=== PATIENT | female | born 1950 | race Caucasian/White ===

== ENCOUNTER → 2021-11-06 | Outpatient (CLI) | payer MEDICARE ==
[~2021-11-06] MED LIST: ASPIRIN EC81 MG PO; ATORVASTATIN CA20 MG PO; BRILINTA 90 MG90 MG PO; CARVEDILOL12.5 MG PO; CATAPRES 0.1MG0.1 MG PO; GLUCOPHAGE 500500 MG PO; LASIX40 MG PO; POTASSIUM CHLO10 ME1 PO; PRINIVIL20 MG PO; SIMVASTATIN10 MG PO; VALSARTAN80 MG PO; VITAMIN A PO; VITAMIN B-12500 MCG PO; VITAMIN C1000 MG PO; ZOLOFT50 MG PO
== END ==
LOC: HEART 5 12:45
DX: I25.10 Atherosclerotic heart disease of native coronary artery without angina pectoris (principal); I11.0 Hypertensive heart disease with heart failure; I50.22 Chronic systolic (congestive) heart failure; I08.0 Rheumatic disorders of both mitral and aortic valves
CPT/HCPCS: 93306

== ENCOUNTER 2022-05-08 17:39 | Emergency (ER) | payer MEDICARE ==
[2022-05-08] MEDS ORDERED: CEPHALEXIN500 M1 PO (22:47)
== END 2022-05-08 23:04 | disposition home or self-care (01) ==
LOC: ER1 17:39
DX: S02.2XXA Fracture of nasal bones, initial encounter for closed fracture (principal); S00.83XA Contusion of other part of head, initial encounter; R04.0 Epistaxis; E11.9 Type 2 diabetes mellitus without complications; I11.0 Hypertensive heart disease with heart failure; I50.9 Heart failure, unspecified; Z90.49 Acquired absence of other specified parts of digestive tract; Z95.5 Presence of coronary angioplasty implant and graft; W01.10XA Fall on same level from slipping, tripping and stumbling with subsequent striking against unspecified object, initial encounter; Y92.009 Unspecified place in unspecified non-institutional (private) residence as the place of occurrence of the external cause; Z23 Encounter for immunization
CPT/HCPCS: 12011; 30903; 70450; 70486; 72125; 90471; 90714; 90715; 96374; 99284; J2405

== ENCOUNTER 2022-05-11 09:39 | Emergency (ER) | payer MEDICARE ==
[~2022-05-11 09:39] MED LIST changes: +CEPHALEXIN500 M1 PO
[2022-05-11] MEDS ORDERED: NEO-SYNEPHRINE15 ML (10:54)
== END 2022-05-11 11:14 | disposition home or self-care (01) ==
LOC: ER1 09:39
DX: Z48.00 Encounter for change or removal of nonsurgical wound dressing (principal); S00.12XD Contusion of left eyelid and periocular area, subsequent encounter; S00.11XD Contusion of right eyelid and periocular area, subsequent encounter; S00.83XD Contusion of other part of head, subsequent encounter; I11.9 Hypertensive heart disease without heart failure; E78.5 Hyperlipidemia, unspecified; E11.9 Type 2 diabetes mellitus without complications; W19.XXXD Unspecified fall, subsequent encounter
CPT/HCPCS: 99283